=== PATIENT | female | born 2000 | race Caucasian/White ===

== ENCOUNTER 2019-01-18 14:48 | Emergency (ER) | payer BC ==
--- NOTE | 2019-01-18 15:31 | UC ---
Throat Pain/Nasal Parker HPI - HPI Summary HPI Summary: 18 year old female who has had head congestion over the past 4 days. She states she's had several sinus infections over the past year and has an appointment with an ear nose and throat physician on Monday in 4 days from now. - History of Current Complaint Chief Complaint: UCRespiratory Stated Complaint: SINUS COMPLAINT Time Seen by Provider: 01/18/19 15:18 Hx Obtained From: Patient Hx Last Menstrual Period: 01/14/19 ?: No Onset/Duration: Gradual Onset Severity: Mild Pain Intensity: 6 Cough: None Associated Signs & Symptoms: Positive: Sinus Discomfort, Nasal Discharge - Allergies/Home Medications Allergies/Adverse Reactions: Allergies Allergy/AdvReac Type Severity Reaction Status Date / Time No Known Allergies Allergy Verified 01/18/19 15:06 Home Medications: Home Medications Norethindrone-Ethinyl Estrad [Alyacen 1-35 28 Tablet] 1 tab DAILY 01/18/19 [ History Confirmed 01/18/19] PMH/Surg Hx/FS Hx/Imm Hx Previously Healthy: Yes - Surgical History Surgical History: None - Family History Known Family History: Positive: Non-Contributory - Social History Occupation: Student Lives: Dormitory/Roommates Alcohol Use: Occasionally Substance Use Type: None Smoking Status (MU): Never Smoked Tobacco Review of Systems All Other Systems Reviewed And Are Negative: Yes ENT: Positive: Sore Throat - Patient had a sore throat the first day but that has resolved., Nasal Discharge - Clear nasal coryza., Sinus Congestion Is Patient Immunocompromised?: No Physical Exam Triage Information Reviewed: Yes Appearance: Well-Appearing, No Pain Distress, Well-Nourished Vital Signs: Initial Vital Signs Temp 97.8 F 01/18/19 15:07 Pulse 79 01/18/19 15:07 Resp 16 01/18/19 15:07 BP 139/81 01/18/19 15:07 Pulse Ox 99 01/18/19 15:07 Vital Signs Reviewed: Yes Eyes: Positive: Conjunctiva Clear ENT: Positive: Pharynx normal, Nasal congestion, Nasal drainage - Clear nasal coryza., TMs normal, Uvula midline Neck: Positive: Supple, Nontender, No Lymphadenopathy Respiratory: Positive: Lungs clear, Normal breath sounds, No respiratory distress, No accessory muscle use Cardiovascular: Positive: RRR, No Murmur, Pulses Normal, Brisk Capillary Refill Musculoskeletal Exam: Normal Neurological Exam: Normal Psychological Exam: Normal Skin Exam: Normal Throat Pain/Nasal Course/Dx - Course Course Of Treatment: Patient is comfortable here. I believe at this point time this is a viral upper respiratory illness. She has an appointment with an ear nose and throat physician on Monday. I advised her to use some [id number] medications however refrain from using anything like Flonase until she seen by the ear nose and throat physician. - Differential Dx/Diagnosis Provider Diagnosis: URI (upper respiratory infection) Discharge ED - Sign-Out/Discharge Documenting (check all that apply): Patient Departure All imaging exams completed and their final reports reviewed: No Studies - Discharge Plan Condition: Good Disposition: HOME Patient Education Materials: Upper Respiratory Infection (DC) Referrals: No Primary Care Phys,NOPCP [Primary Care Provider] - DARYL EDMOND [[facility], APPLICATION, OTHER] - Additional Instructions: Increase fluids, [id number] medications as prescribed, which we discussed already. Keep the appointment with your ear nose and throat physician on Monday. - Billing Disposition and Condition Condition: GOOD Disposition: Home
== END 2019-01-18 15:44 | disposition home or self-care (01) ==
LOC: UCCORT 14:48
DX: J06.9 Acute upper respiratory infection, unspecified (principal)
CPT/HCPCS: 99201; G0463